=== PATIENT | male | born 1995 | race Caucasian/White ===

== ENCOUNTER 2016-09-10 12:04 | Inpatient (IN) | payer OTHER ==
[~2016-09-10] VITALS: Ht 167.6 cm; Wt 86.9 kg
[~2016-09-10 12:04] MED LIST: DEXALANT PO
[2016-09-10 14:00] LABS: MEAN CORPUSCULAR HEMOGLOBIN 29.5 pg (27.0-33.0); MEAN CORPUSCULAR HGB CONC 34.9 g/dl (32.0-36.5); MEAN CORPUSCULAR VOLUME 84.7 fl (80.0-96.0); RED CELL DISTRIBUTION WIDTH 12.4 % (11.5-14.5); WHITE BLOOD COUNT 7.3 K/mm3 (4.0-10.0)
[2016-09-10 14:21] LABS: ALBUMIN/GLOBULIN RATIO 1.18 (1.00-1.93); ALKALINE PHOSPHATASE 72 U/L (45-117); ALT/SGPT 33 U/L (12-78); ANION GAP 9 MEQ/L (8-16); AST/SGOT 30 U/L (15-37); BILIRUBIN,DIRECT 0.1 MG/DL (0.0-0.2); BILIRUBIN,TOTAL 0.5 MG/DL (0.2-1.0); BLOOD UREA NITROGEN 12 MG/DL (7-18); CALCIUM LEVEL 9.5 MG/DL (8.5-10.1); CARBON DIOXIDE LEVEL 27 MEQ/L (21-32); CHLORIDE LEVEL 106 MEQ/L (98-107); CREATININE FOR GFR 1.11 MG/DL (0.70-1.30); GLOMERULAR FILTRATION RATE > 60.0 (>60); GLUCOSE, FASTING 95 MG/DL (70-105); SODIUM LEVEL 142 MEQ/L (136-145); TOTAL PROTEIN 7.4 GM/DL (6.4-8.2)
[2016-09-10 15:12] LABS: CONTROL LINE INT CTR LINE PRESENT; METHADONE URINE NEGATIVE (NEGATIVE); TRICYCLIC ANTIDEPRESS URINE NEGATIVE (NEGATIVE)
[2016-09-10] MEDS ORDERED: MAALOX 30 ML SUSP *UDC PO PRN (21:30)
[2016-09-10] MEDS ORDERED: LORazepam 1 MG TAB PO PRN (21:30)
[2016-09-10] MEDS ORDERED: ACETAMINOPHEN TAB 650MG DOSE (2X325MG) PO PRN (21:30)
[2016-09-10] MEDS ORDERED: MOM 30ML SUSPENSION UDC PO PRN (21:30)
[2016-09-10] MEDS ORDERED: traZODone 50 MG TAB PO PRN (21:30)
[2016-09-10 21:43] VITALS: BP 141/92
[2016-09-11 06:43] VITALS: BP 134/75
--- NOTE | 2016-09-11 10:22 | HPEPDOC ---
Medical History and Physical Date of Admission Sep 10, 2016 at 18:28 History and Physical PCP: [facility] ATTENDING: Dr. Yaya Frias HPI: 21yoM admitted to [facility] for unspecified depressive disorder, being medically examined today. No acute medical complaints today. Denies any fevers, chills, weakness, fatigue, HEATH, CP, SOB, cough, palpitations, abdominal pain, N/V /D or changes in bowel or bladder habits. PMHx: Anxiety Depression PSHX: Appendectomy as child SOCHX: Resides in: [place], from [place] Marital Status: Single Kids: None Employment: Active duty Tobacco use: Denies ETOH: Every other week 5-6 drinks Illicit Drugs: Denies IV Drug Use: Denies Tattoos done unprofessionally: Denies FAMHX: Mother: Alive, well Father: Unknown Siblings: 2 brothers Alive, well Children: None Unexpected deaths due to medical reasons: None. ROS: As noted in HPI, otherwise 11pt ROS of systems reviewed and unremarkable PE: GEN: 21 yo M, appears stated age. Well-nourished, well developed. No acute distress. Alert and oriented x 3. Pleasant, interactive. HEENT: Normocephalic, atraumatic. Pupils are equal, round, and reactive to light. Extraocular movements are intact. No nystagmus appreciated. Sclera are nonicteric. Conjunctiva without injection. Nose midline. Nasal turbinates without bogginess. EACs both patent BL. TMs both visualized and henson with good cone of light, no bulging or erythema. No facial asymmetry. Moist mucous membranes. Dentition fair. Pharynx pink and moist, no cobblestoning. Neck supple , trachea midline. No lymphadenopathy or thyromegaly appreciated. CHEST: Regular rate and rhythm, +S1, +S2 LUNGS: Clear to auscultation bilaterally. No wheezes, rales, or rhonchi. Breathing appears symmetric and easy. Patient is speaking in full sentences. No accessory muscle use. ABD: Round, soft, non-tender, non-distended. +Bowel sounds throughout. No rebound or guarding. No costovertebral angle tenderness. EXT: Pulses 2+ bilaterally dorsalis pedis and radial. No lower extremity edema appreciated. SKIN: [place], dry, warm. Capillary refill <2sec. No rashes. NEURO: Alert and oriented x 3. Cranial nerves III-XII are intact. No focal deficits appreciated. EKG: pending. A&P: 21yoM admitted to [facility] for unspecified depressive disorder 1. Psych. Plan per Psychiatry. Obtain baseline EKG to assure the safety of psychiatric medications as they can prolong the QT interval. 2. Follow up with PCP on discharge. 3. Staff member present throughout exam, viktoriya Valencia. Vital Signs Vital Signs Label Value Date Time Patient Temperature 96.9 degrees F 09/11/16 0643 Pulse 104 09/11/16 0643 Respiratory Rate 16 bpm 09/11/16 0643 Blood Pressure Assessment 134/75 (94) 09/11/16 0643 Laboratory Data Labs 24H Laboratory Tests 2 09/10/16 13:37: Acetaminophen Level < 2.0L, Aspartate Amino Transf (AST/SGOT) 30, Alanine Aminotransferase (ALT/SGPT) 33, Alkaline Phosphatase 72, Total Bilirubin 0.5, Direct Bilirubin 0.1, Albumin 4.0, Albumin/Globulin Ratio 1.18, Anion Gap 9, Calcium Level 9.5, Ethyl Alcohol Level < 0.003, Glomerular Filtration Rate > 60.0, Salicylates Level < 1.7L, Thyroid Stimulating Hormone (TSH) 1.770, Total Protein 7.4 09/10/16 14:53: Urine Amphetamines Screen NEGATIVE, Urine Benzodiazepines Screen NEGATIVE, Urine Opiates Screen NEGATIVE, Urine Barbiturates Screen NEGATIVE, Urine Cannabinoids Screen NEGATIVE, Urine Cocaine Metabolite Screen NEGATIVE, Urine Methadone Screen NEGATIVE, Urine Tricyclic Antidepressants NEGATIVE CBC/BMP Laboratory Tests 09/10/16 13:37 Red Blood Count 5.12, Mean Corpuscular Volume 84.7, Mean Corpuscular Hemoglobin 29.5, Mean Corpuscular Hemoglobin Concent 34.9, Red Cell Distribution Width 12.4 Home Medications No Active Prescriptions or Reported Meds Allergies Coded Allergies: No Known Allergies (Unverified , 09/10/16) Jennifer Enrique Sep 11, 2016 10:22
[2016-09-11 12:00] VITALS: BP 136/76
[2016-09-11 18:00] VITALS: BP 124/82
[2016-09-12 06:37] VITALS: BP 135/77
--- NOTE | 2016-09-12 12:51 | ECGEPIP ---
Stationary ECG Study [facility] Test Date: 2016-09-12 Pat Name: LUPE MATHEW Department: Room: [place] [address] Gender: M Government Affairs Specialist: SHELIA : 1995 Requested By: Jennifer Enrique Order Number: [id number] Reading MD: Yaya Frias Measurements Intervals [place] Rate: 77 P: 43 IA: 147 QRS: 48 QRSD: 92 T: 42 QT: 360 QTc: 408 Interpretive Statements SINUS RHYTHM POSSIBLE RIGHT VENTRICULAR CONDUCTION DELAY No significant change when compared to prior tracing of 02-11-15 Electronically Signed On 09-12-2016 12:51:27 EST by Yaya Frias
[2016-09-12 18:00] VITALS: BP 125/69
[2016-09-13 07:22] VITALS: BP 123/57
[2016-09-13 18:00] VITALS: BP 133/78
[2016-09-14 06:53] VITALS: BP 131/64
[2016-09-14 18:00] VITALS: BP 126/70
[2016-09-15 06:00] VITALS: BP 125/69
--- NOTE | 2016-09-15 09:35 | IPN ---
DATE: 09/14/2016 SUBJECTIVE: "I'm feeling much better, I need to be discharged and go to behavioral health." OBJECTIVE: The patient is improving. He is denying suicidal ideation. There is no evidence of psychomotor retardation. He is interacting well with other patients and staff. The patient is denying suicidal or homicidal ideation. No auditory or visual hallucinations or delusions. MENTAL STATUS EXAMINATION: The patient is dressed in [facility]. The patient is cooperative during examination. He has fair eye contact. Speech is normal in rate, volume, articulation, is coherent and spontaneous. Mood is slightly depressed but significantly improved. Affect is congruent with mood. No delusions or hallucinations. Short and long-term memory is fair. The patient is fully oriented. Associations are intact. Thinking is logical. Thought content is appropriate. The patient is denying suicidal or homicidal ideation during the interview. Insight and judgment is fair. ASSESSMENT: Depression with suicidal ideation. PLAN: 1. The patient prefers to continue with psychosocial interventions only and decide if he wants to start medication, wants to be in [facility] and start treatment as outpatient. 2. Continue with close observation, individual and group therapy.
[2016-09-15 18:00] VITALS: BP 143/87
[2016-09-16 06:24] VITALS: BP 134/71
--- NOTE | 2016-10-31 16:32 | MHDS ---
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 Over the last few weeks, this patient has been experiencing waxing and waning, depression and anxiety while associated with suicidal ideation. 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 Patient denies a past history of suicidal attempt. He has never been hospitalized psychiatrically. This patient does have mild dysfunction of his neurovegetative state with impaired interest level, insomnia, and loss of appetite. This patient denies a past history of more intense depressive episodes. Although he has had a waxing and waning discontentment most of his life. But for the most part he enjoyed living. ON PSYCHIATRIC REVIEW: Symptomatology does not seem evidence of another major psychiatric disorder including substance abuse. Patient never had a trial of psychotropic medicines. MEDICAL EVALUATION: Normal. HOSPITAL COURSE: On admission, this patient denies serious suicide or homicidal risk. Although, claiming not to be suicidal, he was placed on close observation. Over the next few days however, the patient's mood brightened and he became more engaging with staff and therapeutic activities. He said that he experienced a lot of help from talking to other people and these groups. In fact he would prefer to be discharged and to follow up with psychotherapy at [place]. DISCHARGE MENTAL STATUSS: Patient was appropriately dressed with good grooming, in no apparent physical distress. His behavior was very friendly and cooperative and his motor activity was calm. Speech was articulate with normal rate and volume. Mood was good. Affect was mood congruent. Thought process was lucid, linear and goal-directed. There was no psychotic or lethal ideation in his thought content. He denied hallucinations. Insight was good. Judgment good. Impulse control good. Cognition intact. DISCHARGE ASSESSMENT: PSYCHOLOGICAL: Major depressive episode, [id number]. PHYSICAL: No current medical disorders. DISCHARGE PLAN: The patient is going to return to his [place] residence. He will not be prescribed psychotropic medication and he as far as psychosocial management he plans on following up with the [facility]. LETHAL RISK: Low. SAFETY PLAN: Sound. This patient's psychiatric discharge management lasted about 30 minutes. [facility]
== END 2016-09-16 12:00 | disposition home or self-care (01) | DRG 885 ==
LOC: M ED 13:44 → M ED INP 18:28 → M PSY 20:35
PROVIDERS: ADMIT Psychiatry & Neurology Psychiatry; ATTEND Internal Medicine Addiction Medicine
DX: F32.1 Major depressive disorder, single episode, moderate (principal)